=== PATIENT | male | born 1975 | race Caucasian/White ===

== ENCOUNTER 2023-12-19 18:55 | Emergency (ER) | payer MEDICAID ==
[~2023-12-19] VITALS: Ht 167.6 cm; Wt 81.6 kg
[2023-12-19 19:26] VITALS: BP_SYST 166; PULSE 80; RESP 16; TEMP 97.8; O2SAT 98
[2023-12-19] MEDS: guaiFENesin/DEXTROMETHORPHAN 10 ML UDC PO ONE (19:35)
[2023-12-19 20:13] LABS: INFLUENZA TYPE A Negative (NEGATIVE); INFLUENZA TYPE B NEGATIVE (NEGATIVE)
[2023-12-19] MEDS ORDERED: ALBMDI INH (20:41)
[2023-12-19] MEDS ORDERED: BENZ100C92 PO (20:41)
[2023-12-19 20:52] VITALS: BP_SYST 153; PULSE 78; RESP 20; TEMP 98.7; O2SAT 98
== END 2023-12-19 20:45 | disposition home or self-care (01) ==
LOC: SED 18:55
DX: R05.3 Chronic cough (principal); J45.909 Unspecified asthma, uncomplicated; Z79.899 Other long term (current) drug therapy; Z20.822 Contact with and (suspected) exposure to COVID-19
CPT/HCPCS: 36415; 71045; 93005; 99285